=== PATIENT | male | born 1990 | race Two or more races ===

== ENCOUNTER 2020-11-20 12:07 | Emergency (ER) | payer SELFPAY ==
[~2020-11-20] VITALS: Ht 172.7 cm; Wt 90.7 kg
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
--- NOTE | 2020-11-20 13:09 | NUR ---
Patient discharged to home in stable condition. Written and verbal after care instructions given. Patient verbalizes understanding of instruction. Pt ambulatory with a steady gait
[2020-11-20 13:10] VITALS: BP 132/77
== END 2020-11-20 13:10 | disposition home or self-care (01) ==
LOC: ER 12:11
DX: S50.02XA Contusion of left elbow, initial encounter (principal); Z60.2 Problems related to living alone; V19.88XA Pedal cyclist (driver) (passenger) injured in other specified transport accidents, initial encounter; Y93.89 Activity, other specified; Y92.89 Other specified places as the place of occurrence of the external cause; Y99.8 Other external cause status
CPT/HCPCS: 73080-TC

== ENCOUNTER 2024-02-19 21:07 | Emergency (ER) | payer OTHER ==
[~2024-02-19] VITALS: Ht 175.3 cm; Wt 72.6 kg
[2024-02-19 21:18] VITALS: BP 128/79; TEMP 98.5; O2SAT 98
== END 2024-02-19 22:19 | disposition home or self-care (01) ==
LOC: ER 21:09
DX: S63.273A Dislocation of unspecified interphalangeal joint of left middle finger, initial encounter (principal); F19.10 Other psychoactive substance abuse, uncomplicated; Z60.2 Problems related to living alone; W03.XXXA Other fall on same level due to collision with another person, initial encounter; Y93.89 Activity, other specified; Y92.89 Other specified places as the place of occurrence of the external cause; Y99.8 Other external cause status
CPT/HCPCS: 73130-TC